=== PATIENT | male | born 1945 | race African-American/Black ===

== ENCOUNTER 2022-01-05 13:30 | Emergency (ER) | payer BC ==
[~2022-01-05] VITALS: Ht 182.9 cm; Wt 77.1 kg
--- NOTE | 2022-01-05 13:40 | NUR ---
Placed in room 05 . Placed on security monitor, blood pressure machine and pulse oximeter. To gown for exam. Side rails up.
[2022-01-05 13:41] VITALS: BP_SYST 152
--- NOTE | 2022-01-05 13:59 | NUR ---
ERMD AT BEDSIDE AT THIS TIME
--- NOTE | 2022-01-05 14:15 | NUR ---
XRAY AT BEDSIDE AT THIS TIME
--- NOTE | 2022-01-05 14:30 | NUR ---
FIRST CONTACT WITH PT. BIB EMS WITH C/O L SIDED WEAKNESS. PT REPORTS HE HAS BEEN FEELING LIKE HIS GAIT HAS BEEN UNSTEADY X1 WEEK, GETTING WORSE. REPORTS ASSOCIATED DIZZINESS AND TEMPORAL HEADACHE. PER , STATES PT SPEECH IS SLOW AND SLURRED. EQUAL ENGLISH FACULTY MEMBER AND PUSHES. DENIES NUMBNESS TINGLING. NO SENSORY DEFICITS. RESP EVEN AND UNLABORED. WILL CONT TO MONITOR
[2022-01-05 14:53] LABS: PROTHROMBIN TIME 10.2 SECS (9.5-12.5)
[2022-01-05 14:58] LABS: ANION GAP 9 (5-15); CALCIUM 9.5 mg/dL (8.4-11.0); CHLORIDE 103 mmol/L (98-107); CREATININE 1.23 mg/dL (0.55-1.30); GLUCOSE 94 mg/dL (70-99); POTASSIUM 3.8 mmol/L (3.5-5.1); SODIUM SERUM 138 mmol/L (136-145); UREA NITROGEN, BLOOD 22 mg/dL (8-21)
[2022-01-05 15:03] LABS: ALANINE AMINOTRANSFERASE 11 U/L (12-78); ALBUMIN 3.6 g/dL (3.4-4.8); ASPARTATE AMINOTRANSFERASE 19 U/L (10-37); TOTAL BILIRUBIN 0.4 mg/dL (0.0-1.0)
[2022-01-05] MEDS ORDERED: iohexoL 350 mgI/mL, 100 ML INFUS..BTL IV ONE (15:07)
[2022-01-05 15:42] LABS: BASOPHILS % (AUTO) 0.3 % (0.0-2.0); EOSINOPHILS % (AUTO) 0.6 % (0.0-4.0); HEMATOCRIT 38.1 % (36-54); HEMOGLOBIN 12.3 g/dL (14.0-18.0); LYMPHOCYTES # (AUTO) 1.5 K/uL (1.0-5.5); LYMPHOCYTES % (AUTO) 21.7 % (20.5-51.5); MEAN CORPUSCULAR HEMOGLOBIN 26 pg (27-31); MEAN CORPUSCULAR HGB CONC 32 % (32-36); MEAN CORPUSCULAR VOLUME 80 fL (79.0-98.0); MONOCYTES # (AUTO) 0.7 K/uL (0.0-1.0); MONOCYTES % (AUTO) 10.2 % (1.7-9.3); NEUTROPHILS # (AUTO) 4.7 K/uL (1.8-7.7); NEUTROPHILS % (AUTO) 67.2 % (40.0-70.0); PLATELET COUNT (AUTO) 231 K/uL (130-430); RED BLOOD CELL COUNT(AUTO) 4.74 MIL/uL (4.2-6.2); RED CELL DISTRIBUTION WIDTH 17.1 % (9.0-15.0); WHITE BLOOD COUNT (AUTO) 7.1 K/uL (4.8-10.8)
--- NOTE | 2022-01-05 16:00 | NUR ---
PT RESTING COMFORTABLY. NO DISTRESS NOTED. PT REPORTS 4/10 HEAD PAIN. NO N/V. VSS. RESP EVEN AND UNLABORED. PT WILL BE TRANSFERRED FOR HIGHER LEVEL OF CARE
--- NOTE | 2022-01-05 18:20 | NUR ---
NO CHANGE IN NEURO STATUS. GCS 15. RESP EVEN AND UNLABORED. SPEECH SLOW AND SLURRED PER . VSS. AWAITING TRANSFER INFO TO [facility]
--- NOTE | 2022-01-05 18:59 | NUR ---
REPORT CALLED TO CARLOS ENRIQUE CEVALLOS (CHARGE NURSE) AT [facility]. ETA IS 2AM. DISCUSSED WITH CHARGE NURSE FOR POSSIBLE EARLIER TRANSFER DUE TO HIGH ACUITY OF PT. GCS 15. NO DISTRESS NOTED. VSS. AT BEDSIDE
--- NOTE | 2022-01-05 19:18 | NUR ---
REPORT GIVEN TO KAILYN CEVALLOS
--- NOTE | 2022-01-05 19:19 | NUR ---
Received report at this time. Notified charge nurse, resource nurse as well as warehouse laborer that patient is icu level of care and due to be transferred at 0200 per dayshift nurse. Out of ratio at this time. Reassured that assistance will occur during out care of patient. Advocated to have EMS come out earlier for transport. Notified nursing unit manager and legal secretary receptionist states that he will continue to try to get a transport sooner.
--- NOTE | 2022-01-05 20:07 | NUR ---
Report given to MART Moran of [facility] (ER Charge Nurse.).
[2022-01-05 20:15] VITALS: BP_SYST 145
--- NOTE | 2022-01-05 20:16 | NUR ---
Patient to be transferred to [facility] ER bed 4. Is being transferred due to higher level of care. Receiving facility has accepting physician and available space. ER physician has signed transfer form. Patient or responsible libertarian has agreed to transfer and signed form. Patient belongings inventoried and will be sent with patient. Copy of nursing notes, lab reports, EKG, Physicians Orders and X-rays to be sent with patient. Report called to MART Moran at receiving facility. Receiving physician is Dr. Capone . ambulance service has been called for transfer. ETA is now.
== END 2022-01-05 20:15 | disposition short-term general hospital (02) ==
LOC: SED 13:30
DX: I62.1 Nontraumatic extradural hemorrhage (principal); I10 Essential (primary) hypertension; Z20.822 Contact with and (suspected) exposure to COVID-19
CPT/HCPCS: 99291; 70496; 71045; 87426; 80053; 85025; 85610; 85730; 84484; 36415; 93005; 70498; 70450; 76376; Q9967